=== PATIENT | male | born 1980 | race Caucasian/White ===

== ENCOUNTER 2018-10-27 16:34 | Emergency (ER) | payer SELFPAY ==
[~2018-10-27] VITALS: Ht 165.1 cm; Wt 64.0 kg
[2018-10-27] MEDS ORDERED: KETOROLAC 60MG/2ML VIAL IM ONE (20:15)
[2018-10-27 22:52] VITALS: BP 159/90
== END 2018-10-27 22:53 | disposition home or self-care (01) ==
LOC: ER 16:34
DX: S89.81XA Other specified injuries of right lower leg, initial encounter (principal); W17.89XA Other fall from one level to another, initial encounter; Y93.89 Activity, other specified; Y92.812 Truck as the place of occurrence of the external cause
CPT/HCPCS: 73562; 96372; 99283; J1885; L1830; Z7610